=== PATIENT | female | born 1965 | race Caucasian/White ===

== ENCOUNTER → 2016-10-19 | Outpatient (CLI) | payer BC ==
--- NOTE | 2016-10-19 15:41 | REPMRS ---
Patient History The patient states she had a clinical breast exam in 10/2016. Patient is postmenopausal. No known family history of cancer. Digital Woman Screen Mammo: October 19, 2016 - Exam #: [id number] Bilateral CC and MLO view(s) were taken. Technologist: Ginny Short, Technologist Prior study comparison: September 22, 2015, digital woman screen mammo performed at [facility]. June 16, 2014, digital woman screen mammo performed at [facility]. June 15, 2013, digital woman screen mammo performed at [facility]. FINDINGS: There are scattered fibroglandular densities. There has been no change in the appearance of the mammogram from the prior studies. There is a mild amount of scattered fibroglandular density which is fairly symmetric. There is no interval development of dominant mass, architectural distortion, or clustered microcalcification suggestive of malignancy. ASSESSMENT: BI-RADS/ACR category 1 mammogram. Negative. Recommendation Routine screening mammogram in 1 year (for women over age 40). This mammogram was interpreted with the aid of an FDA-approved computer-aided dectection system. Electronically Signed By: Quan Feldman MD 10/19/16 [id number]
== END ==
LOC: M WHC 14:32
PROVIDERS: ATTEND Nurse Practitioner Women's Health
DX: Z12.31 Encounter for screening mammogram for malignant neoplasm of breast (principal); Z78.0 Asymptomatic menopausal state

== ENCOUNTER → 2017-12-02 | Outpatient (CLI) | payer BC | LOC: M WHC 12:54 | DX: Z12.31 Encounter for screening mammogram for malignant neoplasm of breast (principal); R10.2 Pelvic and perineal pain; Z78.0 Asymptomatic menopausal state | CPT/HCPCS: 76830 ==

== ENCOUNTER → 2018-12-04 | Outpatient (CLI) | payer BC ==
--- NOTE | 2018-12-04 16:54 | REPMRS ---
Patient History The patient states she had a clinical breast exam in 11/2018. Patient is postmenopausal. No known family history of cancer. No Hormone Replacement Therapy 3D TOMOSYNTHESIS WAS PERFORMED. [facility] lifetime risk for breast cancer is 10.3%. Digital Woman Screen Mammo: December 04, 2018 - Exam #: [id number] Bilateral CC and MLO view(s) were taken. Technologist: Ginny Short, Technologist Prior study comparison: December 02, 2017, bilateral digital woman screen mammo performed at [facility]. October 19, 2016, digital woman screen mammo performed at [facility]. FINDINGS: There are scattered fibroglandular densities. There has been no change in the appearance of the mammogram from the prior studies. There is a mild amount of residual fibroglandular tissue which is fairly symmetric. There is no interval development of dominant mass, architectural distortion, or clustered microcalcification suggestive of malignancy. Assessment: BI-RADS/ACR category 1 mammogram. Negative Mammogram. Recommendation Routine screening mammogram in 1 year (for women over age 40). This mammogram was interpreted with the aid of an FDA-approved computer-aided dectection system. Electronically Signed By: Alexy Villegas MD 12/04/18 [id number]
== END ==
LOC: M WHC 14:20
PROVIDERS: ATTEND Nurse Practitioner Women's Health
DX: Z12.31 Encounter for screening mammogram for malignant neoplasm of breast (principal); Z78.0 Asymptomatic menopausal state

== ENCOUNTER → 2018-12-04 | Outpatient (REF) | payer OTHER ==
[2018-12-09 14:07] LABS: HPV HYBRID CAPTURE II Negative (Negative)
== END ==
LOC: M SFHCWAGY 15:18
PROVIDERS: ATTEND Nurse Practitioner Women's Health
DX: Z12.4 Encounter for screening for malignant neoplasm of cervix (principal)

== ENCOUNTER → 2019-12-08 | Outpatient (CLI) | payer BC ==
--- NOTE | 2020-01-01 10:21 | REPMRS ---
Patient History The patient states she has not had a clinical breast exam in over a year. Patient is postmenopausal. No known family history of cancer. No Hormone Replacement Therapy Digital Woman Screen Mammo: December 08, 2019 - Exam #: [id number] Bilateral CC and MLO view(s) were taken. Technologist: India Caldwell, Technologist Prior study comparison: December 04, 2018, bilateral digital woman screen mammo performed at [facility]. December 02, 2017, bilateral digital woman screen mammo performed at [facility]. October 19, 2016, digital woman screen mammo performed at [facility]. FINDINGS: There are scattered fibroglandular densities. The [employer] volumetric breast density category is:B. There has been no change in the appearance of the mammogram from the prior studies. There is a mild amount of scattered fibroglandular density which is fairly symmetric. There is no interval development of dominant mass, architectural distortion, or grouped microcalcification suggestive of malignancy. 3-D tomosynthesis shows no additional findings. Report was delayed due to a protracted computer network disruption experienced by this facility. Assessment: BI-RADS/ACR category 1 mammogram. Negative Mammogram. Recommendation Routine screening mammogram of both breasts in 1 year (for women over age 40). This patient's Lifetime Breast Cancer Risk is estimated at 10.1 %. This mammogram was interpreted with the aid of an FDA-approved computer-aided dectection system. Electronically Signed By: Quan Feldman MD 01/01/20 0082
== END ==
LOC: M WHC 06:51
PROVIDERS: ATTEND Nurse Practitioner Women's Health
DX: Z12.31 Encounter for screening mammogram for malignant neoplasm of breast (principal); Z78.0 Asymptomatic menopausal state

== ENCOUNTER 2020-06-09 20:14 | Emergency (ER) | payer BC, OTHER ==
[~2020-06-09] VITALS: Ht 152.4 cm; Wt 86.4 kg
[2020-06-09] MEDS ORDERED: LEVO125T4 PO (20:25)
[2020-06-09] MEDS ORDERED: CYMB60CA3 PO (20:26)
[2020-06-09] MEDS ORDERED: IBUP200C29 PO (20:26)
--- OUTSIDE RECORDS SUMMARY | 2020-06-09 20:27 | CCD ---
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 Name Role Phone Tara Govea PA Unavailable Unavailable Tara Govea PA Unavailable Unavailable Tara Govea PA Unavailable Unavailable Tara Govea PA Unavailable Unavailable Tara Govea PA Unavailable Unavailable Tara Govea PA Unavailable Unavailable Tara Govea PA Unavailable Unavailable Tara Govea PA Unavailable Unavailable Tara Govea PA Unavailable Unavailable Tara Govea PA Unavailable Unavailable Tara Govea PA Unavailable Unavailable Tara Govea PA Unavailable Unavailable Tara Govea PA Unavailable Unavailable Tara Govea PA Unavailable Unavailable Tara Govea PA Unavailable Unavailable Tara Govea PA Unavailable Unavailable Tara Govea PA Unavailable Unavailable Tara Govea Pj PA Unavailable Unavailable Tara Govea Pj PA Unavailable Unavailable Tara Govea PA Unavailable Unavailable Tara Govea Pj PA Unavailable Unavailable Tara Govea Pj PA Unavailable Unavailable Tara Govea Pj PA Unavailable Unavailable Tara Govea Pj PA Unavailable Unavailable Tara Govea Pj PA Unavailable Unavailable Tara Govea Pj PA Unavailable Unavailable Tara Govea PA Unavailable Unavailable Tara Govea Pj PA Unavailable Unavailable Tara Govea Pj PA Unavailable Unavailable Tara Govea PA Unavailable Unavailable Tara Govea Pj PA Unavailable Unavailable Xuan, D Pj PA Unavailable Unavailable Xuan, D Pj PA Unavailable Unavailable Xuan, D Pj PA Unavailable Unavailable Xuan, D Pj PA Unavailable Unavailable Xuan, D Pj PA Unavailable Unavailable Xuan, D Pj PA Unavailable Unavailable Xuan, D Pj PA Unavailable Unavailable Xuan, D Pj PA Unavailable Unavailable Xuan, D Pj PA Unavailable Unavailable Xuan, D Pj PA Unavailable Unavailable Xuan, D Pj PA Unavailable Unavailable Xuan, D Pj PA Unavailable Unavailable Xuan, D Pj PA Unavailable Unavailable Xuan, D Pj PA Unavailable Unavailable Xuan, D Pj PA Unavailable Unavailable Xuan, D Pj PA Unavailable Unavailable Xuan, D Pj PA Unavailable Unavailable Xuan, D Pj PA Unavailable Unavailable Xuan, D Pj PA Unavailable Unavailable Xuan, D Pj PA Unavailable Unavailable Xuan, D Pj PA Unavailable Unavailable Xuan, D Pj PA Unavailable Unavailable Xuan, D Pj PA Unavailable Unavailable Xuan, D Pj PA Unavailable Unavailable Xuan, D Pj PA Unavailable Unavailable Xuan, D Pj PA Unavailable Unavailable Xuan, D Pj PA Unavailable Unavailable Xuan, D Pj PA Unavailable Unavailable Xuan, D Pj PA Unavailable Unavailable Xuan, D Pj PA Unavailable Unavailable Xuan, D Pj PA Unavailable Unavailable Xuan, D Pj PA Unavailable Unavailable Geovany Mcqueen MD Unavailable Unavailable Geovany Mcqueen MD Unavailable Unavailable Geovany Mcqueen MD Unavailable Unavailable Geovany Mcqueen MD Unavailable Unavailable Geovany Mcqueen MD Unavailable Unavailable Geovany Mcqueen MD Unavailable Unavailable Geovany Mcqueen MD Unavailable Unavailable Geovany Mcqueen MD Unavailable Unavailable Geovany Mcqueen MD Unavailable Unavailable Geovany Mcqueen MD Unavailable Unavailable Geovany Mcqueen MD Unavailable Unavailable Geovany Mcqueen MD Unavailable Unavailable Geovany Mcqueen MD Unavailable Unavailable Geovany Mcqueen MD Unavailable Unavailable Geovany Mcqueen MD Unavailable Unavailable Geovany Mcqueen MD Unavailable Unavailable Geovany Mcqueen MD Unavailable Unavailable Geovany Mcqueen MD Unavailable Unavailable Geovany Mcqueen MD Unavailable Unavailable Geovany Mcqueen MD Unavailable Unavailable Geovany Mcqueen MD Unavailable Unavailable Geovany Mcqueen MD Unavailable Unavailable Geovany Mcqueen MD Unavailable Unavailable Richar B Liz GONCALVES Unavailable Unavailable Geovany Mcqueen MD Unavailable Unavailable Geovany Mcqueen MD Unavailable Unavailable Geovany Mcqueen MD Unavailable Unavailable Fish, B Liz GONCALVES Unavailable Unavailable Fish, B Liz OGNCALVES Unavailable Unavailable Fish, B Liz GONCALVES Unavailable Unavailable Fish, B Liz GONCALVES Unavailable Unavailable Fish, B Liz GONCALVES Unavailable Unavailable Fish, B Liz GONCALVES Unavailable Unavailable Fish, B Liz GONCALVES Unavailable Unavailable Fish, B Liz GONCALVES Unavailable Unavailable Fish, B Liz GONCALVES Unavailable Unavailable Fish, B Liz GONCALVES Unavailable Unavailable Fish, B Liz GONCALVES Unavailable Unavailable Fish, B Liz GONCALVES Unavailable Unavailable Fish, B Liz GONCALVES Unavailable Unavailable Fish, B Liz GONCALVES Unavailable Unavailable Fish, B Liz GONCALVES Unavailable Unavailable Fish, B Liz GONCALVES Unavailable Unavailable Fish, B Liz GONCALVES Unavailable Unavailable Fish, B Liz GONCALVES Unavailable Unavailable Fish, B Liz GONCLAVES Unavailable Unavailable Fish, B Liz GONCALVES Unavailable Unavailable Fish, B Liz GONCALVES Unavailable Unavailable Fish, B Liz GONCALVES Unavailable Unavailable Fish, B Liz GONCALVES Unavailable Unavailable Fish, B Liz GONCALVES Unavailable Unavailable Fish, B Liz GONCALVES Unavailable Unavailable Fish, B Liz GONCALVES Unavailable Unavailable Fish, B Liz GONCALVES Unavailable Unavailable Fish, B Liz GONCALVES Unavailable Unavailable Fish, B Liz GONCALVES Unavailable Unavailable Fish, B Liz GONCALVES Unavailable Unavailable Fish, B Liz GONCALVES Unavailable Unavailable Fish, B Liz GONCALVES Unavailable Unavailable Fish, B Liz GONCALVES Unavailable Unavailable Fish, B Liz GONCALVES Unavailable Unavailable Fish, B Liz GONCALVES Unavailable Unavailable Fish, B Liz GONCALVES Unavailable Unavailable Fish, B Liz GONCALVES Unavailable Unavailable COOK, B TRAVON CONFIGURATION SPECIALIST Unavailable Unavailable COOK, B TRAVON CONFIGURATION SPECIALIST Unavailable Unavailable COOK, B TRAVON CONFIGURATION SPECIALIST Unavailable Unavailable COOK, B TRAVON CONFIGURATION SPECIALIST Unavailable Unavailable COOK, B TRAVON CONFIGURATION SPECIALIST Unavailable Unavailable COOK, B TRAVON CONFIGURATION SPECIALIST Unavailable Unavailable COOK, B TRAVON CONFIGURATION SPECIALIST Unavailable Unavailable COOK, B TRAVON CONFIGURATION SPECIALIST Unavailable Unavailable COOK, B TRAVON CONFIGURATION SPECIALIST Unavailable Unavailable COOK, B TRAVON CONFIGURATION SPECIALIST Unavailable Unavailable COOK, B TRAVON CONFIGURATION SPECIALIST Unavailable Unavailable COOK, B TRAVON CONFIGURATION SPECIALIST Unavailable Unavailable COOK, B TRAVON CONFIGURATION SPECIALIST Unavailable Unavailable COOK, B TRAVON CONFIGURATION SPECIALIST Unavailable Unavailable COOK, B TRAVON CONFIGURATION SPECIALIST Unavailable Unavailable COOK, B TRAVON CONFIGURATION SPECIALIST Unavailable Unavailable COOK, B TRAVON CONFIGURATION SPECIALIST Unavailable Unavailable COOK, B TRAVON CONFIGURATION SPECIALIST Unavailable Unavailable COOK, B TRAVON CONFIGURATION SPECIALIST Unavailable Unavailable COOK, B TRAVON CONFIGURATION SPECIALIST Unavailable Unavailable COOK, B TRAVON CONFIGURATION SPECIALIST Unavailable Unavailable COOK, B TRAVON CONFIGURATION SPECIALIST Unavailable Unavailable COOK, B TRAVON CONFIGURATION SPECIALIST Unavailable Unavailable COOK, B TRAVON CONFIGURATION SPECIALIST Unavailable Unavailable COOK, B TRAVON CONFIGURATION SPECIALIST Unavailable Unavailable COOK, B TRAVON CONFIGURATION SPECIALIST Unavailable Unavailable COOK, B TRAVON CONFIGURATION SPECIALIST Unavailable Unavailable COOK, B TRAVON CONFIGURATION SPECIALIST Unavailable Unavailable COOK, B TRAVON CONFIGURATION SPECIALIST Unavailable Unavailable COOK, B TRAVON CONFIGURATION SPECIALIST Unavailable Unavailable COOK, B TRAVON CONFIGURATION SPECIALIST Unavailable Unavailable COOK, B TRAVON CONFIGURATION SPECIALIST Unavailable Unavailable COOK, B TRAVON CONFIGURATION SPECIALIST Unavailable Unavailable COOK, B TRAVON CONFIGURATION SPECIALIST Unavailable Unavailable COOK, B TRAVON CONFIGURATION SPECIALIST Unavailable Unavailable COOK, B TRAVON CONFIGURATION SPECIALIST Unavailable Unavailable COOK, B TRAVON CONFIGURATION SPECIALIST Unavailable Unavailable COOK, B TRAVON CONFIGURATION SPECIALIST Unavailable Unavailable COOK, B TRAVON CONFIGURATION SPECIALIST Unavailable Unavailable COOK, B TRAVON CONFIGURATION SPECIALIST Unavailable Unavailable COOK, B TRAVON CONFIGURATION SPECIALIST Unavailable Unavailable COOK, B TRAVON CONFIGURATION SPECIALIST Unavailable Unavailable COOK, B TRAVON CONFIGURATION SPECIALIST Unavailable Unavailable COOK, B TRAVON CONFIGURATION SPECIALIST Unavailable Unavailable COOK, B TRAVON CONFIGURATION SPECIALIST Unavailable Unavailable COOK, B TRAVON CONFIGURATION SPECIALIST Unavailable Unavailable COOK, B TRAVON CONFIGURATION SPECIALIST Unavailable Unavailable COOK, B TRAVON CONFIGURATION SPECIALIST Unavailable Unavailable COOK, B TRAVON CONFIGURATION SPECIALIST Unavailable Unavailable COOK, B TRAVON CONFIGURATION SPECIALIST Unavailable Unavailable COOK, B TRAVON CONFIGURATION SPECIALIST Unavailable Unavailable COOK, B TRAVON CONFIGURATION SPECIALIST Unavailable Unavailable COOK, B TRAVON CONFIGURATION SPECIALIST Unavailable Unavailable COOK, B TRAVON CONFIGURATION SPECIALIST Unavailable Unavailable COOK, B TRAVON CONFIGURATION SPECIALIST Unavailable Unavailable COOK, B TRAVON CONFIGURATION SPECIALIST Unavailable Unavailable COOK, B TRAVON CONFIGURATION SPECIALIST Unavailable Unavailable COOK, B TRAVON CONFIGURATION SPECIALIST Unavailable Unavailable COOK, B TRAVON CONFIGURATION SPECIALIST Unavailable Unavailable COOK, B TRAVON CONFIGURATION SPECIALIST Unavailable Unavailable COOK, B TRAVON CONFIGURATION SPECIALIST Unavailable Unavailable COOK, B TRAVON CONFIGURATION SPECIALIST Unavailable Unavailable COOK, B TRAVON CONFIGURATION SPECIALIST Unavailable Unavailable COOK, B TRAVON CONFIGURATION SPECIALIST Unavailable Unavailable Re-disclosure Warning The records that you are about to access may contain information from federally-assisted alcohol or drug abuse programs. If such information is present, then the following federally mandated warning applies: This information has been disclosed to you from records protected by federal confidentiality rules (42 CFR part 2). The federal rules prohibit you from making any further disclosure of this information unless further disclosure is expressly permitted by the written consent of the person to whom it pertains or as otherwise permitted by 42 CFR part 2. A general authorization for the release of medical or other information is NOT sufficient for this purpose. The Federal rules restrict any use of the information to criminally investigate or prosecute any alcohol or drug abuse patient.The records that you are about to access may contain highly sensitive health information, the redisclosure of which is protected by Article 27-F of the [facility] Public Health law. If you continue you may have access to information: Regarding HIV / AIDS; Provided by facilities licensed or operated by the [facility] Office of Mental Health; or Provided by the [facility] Office for People With Developmental Disabilities. If such information is present, then the following [facility] mandated warning applies: This information has been disclosed to you from confidential records which are protected by state law. State law prohibits you from making any further disclosure of this information without the specific written consent of the person to whom it pertains, or as otherwise permitted by law. Any unauthorized further disclosure in violation of state law may result in a fine or correction sentence or both. A general authorization for the release of medical or other information is NOT sufficient authorization for further disc losure. Family History Family Member Name Family Member Gender Family Member Status Date o f Status Description Data Source(s) Unknown Unknown Problem [facility] ([facility]) Unknown Unknown Problem [facility] ([facility]) Unknown Unknown Problem [facility] ([facility]) Unknown Unknown Problem [facility] ([facility]) Unknown Unknown Problem [facility] ([facility]) Unknown Unknown Problem [facility] ([facility]) Encounters Encounter Providers Location Date Indications Data Source(s ) [place] [address] [facility] [address] 04/18/2020 12:00:00 AM EST eCW1 ([facility]) Outpatient Attender: Pj BRYANT [place] [facility] 07:45:00 AM EST [facility] ([facility] Outpatient Attender: Pj BRYANT [place] [facility] 10:00:00 AM EDT [facility] ([facility] Outpatient Attender: Pj BRYANT [place] [facility] 03:15:00 PM EDT [facility] ([facility] Outpatient Attender: TRAVON GARCIA NP Physical Therapy 08/17/2019 0 3:15:00 PM EDT [facility] ([facility]) Outpatient Attender: Pj BRYANT [place] [facility] 01:00:00 PM EDT [facility] ([facility] Outpatient Attender: Liz Mcqueen MD Physical Therapy 04/27 03:00:00 PM EST [facility] ([facility]) Immunizations Vaccine Date Status Description Data Source(s) New in 2012. IIV4 02/04/2020 10:06:00 AM EDT completed [facility] ([facility] Medications Medication Brand Name Start Date Product Form Dose Route Admi nistrative Instructions Pharmacy Instructions Status Indications Reaction Description Data Source(s) Cyclobenzaprine hydrochloride 5 MG Oral Tablet Cyclobenzapri ne HCL 08/27/2019 12:00:00 AM EDT ORAL active M EDENT ([facility] Insurance Providers Payer name Policy type / Coverage type Policy ID Covered constitution party ID Covered constitution party's relationship to napoles Policy Napoles Plan Information [facility] [phone] [id number] SP [id number] [employer] [id number] SP [id number] [facility] DIV [id number] SP [id number] [employer] [id number] ANSI-Commercial [id number] [facility] DIV [id number] SP [id number] [facility] [employer] [id number] 1 [id number] [employer] O [id number] S [id number] [facility] Health Maintenance Organization (HMO) [id number] Self [id number] [facility] Health Maintenance Organization (HMO) [id number] Self [id number] [employer] Elizabeth Commercial Family Depende nt [facility] Health Maintenance Organization (HMO) Self EMPIRE PLAN [facility] U [id number] Self [id number] [facility] [id number] [facility] [id number] [facility] SP UNAVAILABLE [facility] DIV [id number] SP [id number] [facility] DIV [id number] SP [id number] Problems, Conditions, and Diagnoses Code Display Name Description Problem Type Effective Dates Data Source(s) F32.9 61977614 Depression, unspecified depression type P roblem 04/18/2020 12:00:00 AM EST eCW1 ([facility]) [id number] Acquired trigger finger Acquired trigger finger Proble m 02/04/2020 12:00:00 AM EDT [facility] ([facility] Results ID Date Data Source [id number] 04/04/2020 09:12:00 AM EST MED[facility] ([facility] Name Value Range Interpretation Code Description Data Guerda rce(s) Supporting Document(s) Estrogen [Mass/volume] in Serum or Plasma 56 pg/mL [facility] ([facility] <content>Prepubertal <40</cont ent>
<content>Female Cycle:</content>
<content>1-10 Days 61 - 394</content>
<content>11- 20 Days 122 - 437</content>
<content>21-30 Days 156 - 350</content>
<content>Post-Menopausal <40</content>
<content>[facility] for Ovulation</content>
<content>Induction: 400 - 800</content>
<content></content> ID Date Data Source [id number] 04/04/2020 09:12:00 AM EST [facility] ([facility] Name Value Range Interpretation Code Description Data Guerda rce(s) Supporting Document(s) Lutropin [Units/volume] in Serum or Plasma 33.3 mIU/mL [facility] ([facility] Adult Female: Follicular phase 2.4 - 12.6 Ovulation phase 14.0 - 95.6 Luteal phase 1.0 - 11.4 Postmenopausal 7.7 - 58.5 Follitropin [Units/volume] in Serum or Plasma 68.4 mIU/mL [facility] ([facility] Adult Female: Follicular phase 3.5 - 12.5 Ovulation phase 4.7 - 21.5 Luteal phase 1.7 - 7.7 Postmenopausal 25.8 - 134.8 ID Date Data Source [id number] 04/04/2020 09:12:00 AM EST [facility] ([facility] Name Value Range Interpretation Code Description Data Guerda rce(s) Supporting Document(s) Testosterone Free [Mass/volume] in Serum or Plasma 2.6 pg/mL 0.0-4.2 [facility] ([facility] Testosterone [Mass/volume] in Serum or Plasma 9 ng/dL 3-41 [facility] ([facility] ID Date Data Source [id number] 02/25/2020 11:20:00 AM EDT [facility] ([facility] Name Value Range Interpretation Code Description Data Guerda rce(s) Supporting Document(s) Leukocytes [#/volume] in Blood by Automated count 6.7 x10E3/uL 3.4-10 .8 [facility] ([facility] A courtesy copy of this report has been sent to the patient, Hemoglobin [Mass/volume] in Blood 13.2 g/dL 11.1-15.9 [facility] ([facility] A courtesy copy of this report has been sent to the patient, Hematocrit [Volume Fraction] of Blood by Automated count 39.7 % 3 4.0-46.6 [facility] ([facility] A courtesy copy of this report has been sent to the patient, Erythrocytes [#/volume] in Blood by Automated count 4.38 x10E6/uL 3.7 7-5.28 [facility] ([facility] A courtesy copy of this report has been sent to the patient, Erythrocyte mean corpuscular volume [Entitic volume] by Auto mated count 91 fL 79-97 [facility] A courtesy copy of this report has been sent to the patient, Erythrocyte mean corpuscular hemoglobin concentration [Mass/volume] by Automated count 33.2 g/dL 31.5-35.7 [facility] ([facility] A courtesy copy of this report has been sent to the patient, Erythrocyte mean corpuscular hemoglobin [Entitic mass] by Automated count 30.1 pg 26.6-33.0 [facility] A courtesy copy of this report has been sent to the patient, Neutrophils 52 % [facility] A courtesy copy of this report has been sent to the patient, Platelets [#/volume] in Blood by Automated count 227 x10E3/uL 150-450 [facility] ([facility] A courtesy copy of this report has been sent to the patient, Erythrocyte distribution width [Ratio] by Automated count 13.2 % 11.7-15.4 [facility] ([facility] A courtesy copy of this report has been sent to the patient, Eosinophils/100 leukocytes in Blood by Automated count 1 % [facility] ([facility] A courtesy copy of this report has been sent to the patient, Lymphs 40 % [facility] ([facility] A courtesy copy of this report has been sent to the patient, Monocytes/100 leukocytes in Blood by Automated count 6 % [facility] ([facility] A courtesy copy of this report has been sent to the patient, Basophils/100 leukocytes in Blood by Automated count 1 % [facility] ([facility] A courtesy copy of this report has been sent to the patient, Immature cells [#/volume] in Blood Laboratory test result [facility] ([facility] A courtesy copy of this report has been sent to the patient, Neutrophils [#/volume] in Blood by Automated count 3.5 x10E3/uL 1.4-7 .0 [facility] ([facility] A courtesy copy of this report has been sent to the patient, Monocytes [#/volume] in Blood 0.4 x10E3/uL 0.1-0.9 [facility] ([facility] A courtesy copy of this report has been sent to the patient, Lymphocytes [#/volume] in Blood 2.7 x10E3/uL 0.7-3.1 [facility] ([facility] A courtesy copy of this report has been sent to the patient, Eosinophils [#/volume] in Blood by Automated count 0.1 x10E3/uL 0.0-0 .4 [facility] ([facility] A courtesy copy of this report has been sent to the patient, Basophils [#/volume] in Blood by Automated count 0.1 x10E3/uL 0.0-0.2 [facility] ([facility] A courtesy copy of this report has been sent to the patient, Immature granulocytes/100 leukocytes in Blood by Automated count 0 % [facility] ([facility] A courtesy copy of this report has been sent to the patient, Immature granulocytes [#/volume] in Blood by Automated count 0.0 x10E3/uL 0.0-0.1 [facility] A courtesy copy of this report has been sent to the patient, Morphology [Interpretation] in Blood Narrative Laboratory test result [facility] ([facility] A courtesy copy of this report has been sent to the patient, Nucleated erythrocytes/100 leukocytes [Ratio] in Blood by Automated count Laboratory test result [facility] ([facility] A courtesy copy of this report has been sent to the patient, ID Date Data Source [id number] 02/25/2020 11:20:00 AM EDT [facility] ([facility] Name Value Range Interpretation Code Description Data Guerda rce(s) Supporting Document(s) Glucose [Mass/volume] in Serum or Plasma 87 mg/dL 65-99 [facility] ([facility] A courtesy copy of this report has been sent to the patient, BUN 18 mg/dL 6-24 [facility] ([facility] A courtesy copy of this report has been sent to the patient, eGFR If NonAfricn Am 98 mL/min/1.73 [facility] ([facility] A courtesy copy of this report has been sent to the patient, Creatinine [Mass/volume] in Serum or Plasma 0.68 mg/dL 0.57-1.00 [facility] ([facility] A courtesy copy of this report has been sent to the patient, Sodium [Moles/volume] in Serum or Plasma 139 mmol/L 134-144 [facility] ([facility] A courtesy copy of this report has been sent to the patient, Urea nitrogen/Creatinine [Mass Ratio] in Serum or Plasma 26 9-23 Above high normal [facility] ([facility] ) A courtesy copy of this report has been sent to the patient, eGFR If Africn Am 113 mL/min/1.73 ME DENT ([facility] A courtesy copy of this report has been sent to the patient, Potassium [Moles/volume] in Serum or Plasma 4.5 mmol/L 3.5-5.2 [facility] ([facility] A courtesy copy of this report has been sent to the patient, Carbon dioxide, total [Moles/volume] in Serum or Plasma 23 mmol/L 20 -29 [facility] ([facility] A courtesy copy of this report has been sent to the patient, Chloride [Moles/volume] in Serum or Plasma 104 mmol/L 96-106 [facility] ([facility] A courtesy copy of this report has been sent to the patient, Protein [Mass/volume] in Serum or Plasma 6.8 g/dL 6.0-8.5 [facility] ([facility] A courtesy copy of this report has been sent to the patient, Albumin [Mass/volume] in Serum or Plasma 4.5 g/dL 3.8-4.9 [facility] ([facility] A courtesy copy of this report has been sent to the patient, Calcium [Mass/volume] in Serum or Plasma 9.3 mg/dL 8.7-10.2 [facility] ([facility] A courtesy copy of this report has been sent to the patient, Bilirubin.total [Mass/volume] in Serum or Plasma 0.4 mg/dL 0.0-1.2 [facility] ([facility] A courtesy copy of this report has been sent to the patient, Globulin [Mass/volume] in Serum by calculation 2.3 g/dL 1.5-4.5 [facility] ([facility] A courtesy copy of this report has been sent to the patient, Albumin/Globulin [Mass Ratio] in Serum or Plasma 2.0 1.2-2.2 [facility] ([facility] A courtesy copy of this report has been sent to the patient, Alanine aminotransferase [Enzymatic activity/volume] in Seru m or Plasma 18 IU/L 0-32 [facility] ([facility] A courtesy copy of this report has been sent to the patient, Alkaline phosphatase [Enzymatic activity/volume] in Serum or Plasma 57 IU/L 39-117 [facility] ([facility] A courtesy copy of this report has been sent to the patient, Aspartate aminotransferase [Enzymatic activity/volume] in Serum or Plasma 18 IU/L 0-40 [facility] ([facility] A courtesy copy of this report has been sent to the patient, ID Date Data Source [id number] 02/25/2020 11:20:00 AM EDT [facility] ([facility] Name Value Range Interpretation Code Description Data Guerda rce(s) Supporting Document(s) Cholesterol [Mass/volume] in Serum or Plasma 197 mg/dL 100-199 [facility] ([facility] A courtesy copy of this report has been sent to the patient, Triglyceride [Mass/volume] in Serum or Plasma 106 mg/dL 0-149 [facility] ([facility] A courtesy copy of this report has been sent to the patient, Laboratory test finding (navigational concept) 19 mg/dL 5-40 [facility] ([facility] A courtesy copy of this report has been sent to the patient, Laboratory test finding (navigational concept) 107 mg/dL 0-99 Above high normal [facility] ([facility] A courtesy copy of this report has been sent to the patient, Cholesterol in HDL [Mass/volume] in Serum or Plasma 71 mg/dL [facility] ([facility] A courtesy copy of this report has been sent to the patient, Comment: Laboratory test result [facility] ([facility] A courtesy copy of this report has been sent to the patient, ID Date Data Source [id number] 02/25/2020 11:20:00 AM EDT [facility] ([facility] Name Value Range Interpretation Code Description Data Guerda rce(s) Supporting Document(s) Calcidiol [Mass/volume] in Serum or Plasma 56.3 ng/mL 30.0-100.0 [facility] ([facility] A courtesy copy of this report has been sent to the patient, Thyrotropin [Units/volume] in Serum or Plasma 0.896 uIU/mL 0.450-4.50 0 [facility] ([facility] A courtesy copy of this report has been sent to the patient, Procedure Social History Code Duration Value Status Description Data Source(s ) Smoking 04/18/2020 12:00:00 AM EST Former Smoker completed Former Smoker [id number] ([facility]) Vital Signs ID Date Data Source UNK Name Value Range Interpretation Code Description Data Source(s) Systolic blood pressure 112 mm[Hg] 112 mm[Hg] M EDENT ([facility] Diastolic blood pressure 80 mm[Hg] 80 mm[Hg] [facility] ([facility] Body temperature 97.6 [degF] 97.6 [degF] [facility] ([facility] Heart rate 87 /min 87 /min [facility] ([facility] Respiratory rate 16 /min 16 /min [facility] ( [facility] Body height 60 [in_i] 60 [in_i] [facility] ([facility] 5'0" Body weight 167.00 [lb_av] 167.00 [lb_av] MEDEN T ([facility] [place] body weight 100 [lb_av] 100 [lb_av] MEDEN T ([facility] Body mass index (BMI) [Ratio] 32.6 kg/m2 32.6 k g/m2 [facility] ([facility] Oxygen saturation in Arterial blood by Pulse oximetry 98 % 98 % [facility] ([facility] Systolic blood pressure 100 mm[Hg] 100 mm[Hg] M EDENT ([facility] Diastolic blood pressure 76 mm[Hg] 76 mm[Hg] [facility] ([facility] Body temperature 98.1 [degF] 98.1 [degF] [facility] ([facility] Heart rate 75 /min 75 /min [facility] ([facility] Respiratory rate 16 /min 16 /min [facility] ( [facility] Body height 60 [in_i] 60 [in_i] [facility] ([facility] 5'0" Body weight 167.00 [lb_av] 167.00 [lb_av] MEDEN T ([facility] [place] body weight 100 [lb_av] 100 [lb_av] MEDEN T ([facility] Body mass index (BMI) [Ratio] 32.6 kg/m2 32.6 k g/m2 [facility] ([facility] Oxygen saturation in Arterial blood by Pulse oximetry 98 % 98 % [facility] ([facility] Systolic blood pressure 102 mm[Hg] 102 mm[Hg] M EDENT ([facility] Diastolic blood pressure 78 mm[Hg] 78 mm[Hg] [facility] ([facility] Body temperature 98.3 [degF] 98.3 [degF] [facility] ([facility] Heart rate 75 /min 75 /min [facility] ([facility] Respiratory rate 16 /min 16 /min [facility] ( [facility] Body height 60 [in_i] 60 [in_i] [facility] ([facility] 5'0" Body weight 166.00 [lb_av] 166.00 [lb_av] MEDEN T ([facility] [place] body weight 100 [lb_av] 100 [lb_av] MEDEN T ([facility] Body mass index (BMI) [Ratio] 32.4 kg/m2 32.4 k g/m2 [facility] ([facility] Oxygen saturation in Arterial blood by Pulse oximetry 98 % 98 % [facility] ([facility] Systolic blood pressure 102 mm[Hg] 102 mm[Hg] M EDENT ([facility] Diastolic blood pressure 78 mm[Hg] 78 mm[Hg] [facility] ([facility] Body temperature 98.3 [degF] 98.3 [degF] [facility] ([facility] Heart rate 100 /min 100 /min [facility] ([facility] Respiratory rate 16 /min 16 /min [facility] ( [facility] Body height 60 [in_i] 60 [in_i] [facility] ([facility] 5'0" Body weight 166.00 [lb_av] 166.00 [lb_av] MEDEN T ([facility] Body mass index (BMI) [Ratio] 32.4 kg/m2 32.4 k g/m2 [facility] ([facility] Oxygen saturation in Arterial blood by Pulse oximetry 96 % 96 % [facility] ([facility] Oxygen saturation in Arterial blood by Pulse oximetry 97 % 97 % [facility]A ([facility] Body mass index (BMI) [Ratio] 32.2 kg/m2 32.2 k g/m2 [facility] ([facility] Body weight 167.50 [lb_av] 167.50 [lb_av] MEDEN T ([facility] Body height 60.5 [in_i] 60.5 [in_i] [facility] ([facility] 5'0.50" Heart rate 84 /min 84 /min [facility] ([facility]) Diastolic blood pressure 84 mm[Hg] 84 mm[Hg] [facility]NORA ([facility] Systolic blood pressure 120 mm[Hg] 120 mm[Hg] Louisa VALENZUELA ([facility])
--- OUTSIDE RECORDS SUMMARY | 2020-06-09 20:27 | CCD ---
Author Author [facility] Organization [facility] [employer] [facility] Address Unknown Phone Unavailable Care Team Providers Care Utility Sales And Service Manager Name Role Phone KeziaSamara pablo Unavailable PROBLEMS Type Condition ICD9-CM Code [id number] Code Onset Dates Condition S tatus SNOMED Code Notes Problem Unspecified hypothyroidism 244.9 Active 37622 008 hx [facility] Problem Depression, unspecified depression type F32.9 Active 73996650 Problem Neck sprain and strain 847.0 Active [id number] ALLERGIES Allergen (clinical drug ingredient) Drug/Non Drug Allergy do cumented on EMR Reaction Allergy Type Onset Date Status sulfa chest tightness/pain Non Drug Allergy Active ENCOUNTERS from 1965 to 2020-04-19 Encounter Location Date Provider Diagnosis [facility] [address] [place] [id number] Apr, Samara Mast Postmenopausal Z78.0 and Depression, unspecified depression type F32.9 IMMUNIZATIONS No Information SOCIAL HISTORY Tobacco Use: Social History Observation Description Date Details (start date - stop date) Former Smoker Sex Assigned At : Social History Observation Description Sex Assigned At Unknown Sexual Hx: Question Answer Notes Had sex in the last 12 months (vaginal, oral, or anal)? Yes LMP: post menopause Have you ever had an STD? No with Men only Tobacco Use: Question Answer Notes Are you a: former smoker How long has it been since you last smoked? > 10 years REASON FOR REFERRAL No Information VITAL SIGNS No information MEDICATIONS Medication SIG (Take, Route, Frequency, Duration) Notes Start Da te End Date Status Estroven OTC 1 tablet Orally once a day Unknown Vitamin B Complex - as directed Orally Active Vitamin D3 2000 UNIT t tabs as directed Orally Once a day Active Cymbalta 30 mg 1 capsule Orally daily for 30 day(s) Active MiraLax - as directed Orally Active Synthroid 125 MCG 1 tablet every morning on an empty stoma ch Orally Once a day Active PROCEDURES No Information RESULTS No Results REASON FOR VISIT HAVING ISSUES AND GO OVER BLOOD WORK FROM HER PRIMARY MEDICAL (GENERAL) HISTORY Type Description Date Medical History Hypothyroidism, hx Macy's disease Medical History stress urinary incontinence, improved wi th exercise Medical History constipation Medical History Depression Surgical History cone bx. (Dr. Blas) 1990 Surgical History colposcopy 09/19 Surgical History colonoscopy 09/2018 Hospitalization History No Hospitalization history informati on Goals Section No Information Health Concerns No Information MEDICAL EQUIPMENT No Information MENTAL STATUS No Information FUNCTIONAL STATUS No Information ASSESSMENTS Encounter Date Diagnosis Assessment Notes Treatment Notes Treatm ent Clinical Notes Apr, Postmenopausal (ICD-10 - Z78.0) labs reviewed with pt, estrogen is 50, thyroid normal. no pmb, no pelvic pain, she does have chronic constipation that is treated with miralax Apr, Depression, unspecified depression type (ICD-10 - F32.9) continue with meds a/o by her PCP, discussed reducing caffeine and etoh, discussed adding exercise into her routine, even a brisk walk will be beneficial. pt retired in last year, had many plans of travelling after [facility] and is struggling with this loss PLAN OF TREATMENT Treatment Notes Assessment Notes Clinical Notes Postmenopausal labs reviewed with p t, estrogen is 50, thyroid normal. no pmb, no pelvic pain, she does have chronic constipation that is treated with miralax Depression, unspecified depression type continue with meds a/o by her PCP, discussed reducing caffeine and etoh, discussed adding exercise into her routine, even a brisk walk will be beneficial. pt retired in last year, had many plans of travelling after [facility] and is struggling with this loss Next Appt Details prn Reason:prn Follow Up:prnprn Insurance Providers Payer Name Payer Address Payer Phone Insured Name Patient Relati onship to Insured Coverage Start Date Coverage End Date [facility] [phone] [facility] [id number] [phone] FREDDIE ALICIA
[2020-06-09] MEDS ORDERED: NS 1,000 ML IV ONE (21:00)
[2020-06-09] MEDS ORDERED: ACETAMINOPHEN 325 MG TAB PO ONE (21:15)
[2020-06-09 21:28] LABS: BASO % 0.1 % (0.0-1.0); EOS # 0.1 10^3/uL (0.0-0.5); EOS % 1.3 % (0.0-3.0); HEMOGLOBIN 12.6 g/dl (12.0-15.5); LYMPH # 1.3 10^3/uL (1.5-5.0); LYMPH % 12.5 % (24.0-44.0); MEAN CORPUSCULAR HEMOGLOBIN 30.1 pg (27.0-33.0); MEAN CORPUSCULAR HGB CONC 33.2 g/dl (32.0-36.5); MEAN CORPUSCULAR VOLUME 90.9 fl (80.0-96.0); MONO # 0.6 10^3/uL (0.0-0.8); MONO % 5.2 % (0.0-5.0); NEUTROPHILS # 8.5 10^3/uL (1.5-8.5); NEUTROPHILS % 80.4 % (36.0-66.0); PLATELET COUNT, AUTOMATED 233 10^3/uL (150-450); RED BLOOD COUNT 4.18 10^6/uL (4.00-5.40); WHITE BLOOD COUNT 10.5 10^3/uL (4.0-10.0)
--- NOTE | 2020-06-09 21:48 | REPVR ---
PROCEDURE INFORMATION: Exam: XR Chest, 1 View Exam date and time: 06/09/2020 8:51 PM Age: 55 years old Clinical indication: Chest pain; Type not specified TECHNIQUE: Imaging protocol: XR of the chest Views: 1 view. COMPARISON: No relevant prior studies available. FINDINGS: Lungs: The right lung appears clear. There is vague increased density in the left lower lobe. Pleural spaces: Unremarkable. No pleural effusion. No pneumothorax. Heart/Mediastinum: Unremarkable. No cardiomegaly. Bones/joints: Unremarkable. IMPRESSION: There is vague increased density in the left lower lobe which could be due to subsegmental atelectasis, edema or early pneumonia. Electronically signed by: Vida Chance On 06/09/2020 21:47:46 PM
[2020-06-09 22:06] LABS: ALBUMIN 3.5 GM/DL (3.2-5.2); ALT/SGPT 25 U/L (12-78); BILIRUBIN,DIRECT 0.1 MG/DL (0.0-0.2); BILIRUBIN,TOTAL 0.6 MG/DL (0.2-1.0); BLOOD UREA NITROGEN 19 MG/DL (7-18); CALCIUM LEVEL 9.4 MG/DL (8.5-10.1); CARBON DIOXIDE LEVEL 27 MEQ/L (21-32); CHLORIDE LEVEL 107 MEQ/L (98-107); CK-MB VALUE MASS < 1.0 NG/ML (<3.6); CPK CREATINE PHOSPHOKINASE 112 U/L (26-192); CREATININE FOR GFR 0.78 MG/DL (0.55-1.30); GLOMERULAR FILTRATION RATE > 60.0 (>51); GLUCOSE, FASTING 103 MG/DL (70-100); LIPASE 92 U/L (73-393); MB/CK RELATIVE INDEX 0.89 (< OR =4); POTASSIUM SERUM 4.3 MEQ/L (3.5-5.1); SODIUM LEVEL 140 MEQ/L (136-145); TROPONIN I < 0.02 NG/ML (< 0.10)
--- OUTSIDE RECORDS SUMMARY | 2020-06-09 22:50 | CCD ---
Author Author [facility] Organization [facility] Address Unknown Phone Unavailable Care Team Providers Care Locomotive Operator Helper Name Role Phone Tara Govea PA Unavailable Unavailable aTra Govea PA Unavailable Unavailable Tara Govea PA [...] Unavailable Unavailable Tara Govea PA Unavailable Unavailable Xuan, D Pj PA [...] Unavailable Unavailable Geovany Mcqueen MD Unavailable Unavailable Geovnay Mcqueen MD Unavailable Unavailable Geovany Mcqueen MD [...] Unavailable Richar B Liz GONCALVES Unavailable Unavailable Richar B Liz GONCALVES Unavailable Unavailable Richar B Liz GONCALVES Unavailable Unavailable Richar B Liz GONCALVES Unavailable Unavailable Richar B Liz GONCALVES Unavailable Unavailable Geovany Mcqueen MD Unavailable Unavailable Geovany Mcqueen MD Unavailable Unavailable Richar B Liz GONCALVES Unavailable Unavailable Richar B Liz GONCALVES Unavailable Unavailable Richar B Liz GONCALVES Unavailable Unavailable Richar B Liz GONCALVES Unavailable Unavailable Richar B Liz GONCALVES Unavailable Unavailable Richar B Liz GONCALVES Unavailable Unavailable Richar B Liz GONCALVES Unavailable Unavailable Fish, B [...] Liz GONCALVES Unavailable Unavailable COOK, B TRAVON RECESSING MACHINE OPERATOR Unavailable Unavailable COOK, B TRAVON RECESSING MACHINE OPERATOR Unavailable Unavailable COOK, B TRAVON RECESSING MACHINE OPERATOR Unavailable Unavailable COOK, B TRAVON RECESSING MACHINE OPERATOR Unavailable Unavailable COOK, B TRAVON RECESSING MACHINE OPERATOR Unavailable Unavailable COOK, B TRAVON RECESSING MACHINE OPERATOR Unavailable Unavailable COOK, B TRAVON RECESSING MACHINE OPERATOR Unavailable Unavailable COOK, B TRAVON RECESSING MACHINE OPERATOR Unavailable Unavailable COOK, B TRAVNO RECESSING MACHINE OPERATOR Unavailable Unavailable COOK, B TRAVON RECESSING MACHINE OPERATOR Unavailable Unavailable COOK, B TRAVON RECESSING MACHINE OPERATOR Unavailable Unavailable COOK, B TRAVON RECESSING MACHINE OPERATOR Unavailable Unavailable COOK, B TRAVON RECESSING MACHINE OPERATOR Unavailable Unavailable COOK, B TRAVON RECESSING MACHINE OPERATOR Unavailable Unavailable COOK, B TRAVON RECESSING MACHINE OPERATOR Unavailable Unavailable COOK, B TRAVON RECESSING MACHINE OPERATOR Unavailable Unavailable COOK, B TRAVON RECESSING MACHINE OPERATOR Unavailable Unavailable COOK, B TRAVON RECESSING MACHINE OPERATOR Unavailable Unavailable COOK, B TRAVON RECESSING MACHINE OPERATOR Unavailable Unavailable COOK, B TRAVON RECESSING MACHINE OPERATOR Unavailable Unavailable COOK, B TRAVON RECESSING MACHINE OPERATOR Unavailable Unavailable COOK, B TRAVON RECESSING MACHINE OPERATOR Unavailable Unavailable COOK, B TRAVON RECESSING MACHINE OPERATOR Unavailable Unavailable COOK, B TRAVON RECESSING MACHINE OPERATOR Unavailable Unavailable COOK, B TRAVON RECESSING MACHINE OPERATOR Unavailable Unavailable COOK, B TRAVON RECESSING MACHINE OPERATOR Unavailable Unavailable COOK, B TRAVON RECESSING MACHINE OPERATOR Unavailable Unavailable COOK, B TRAVON RECESSING MACHINE OPERATOR Unavailable Unavailable COOK, B TRAVON RECESSING MACHINE OPERATOR Unavailable Unavailable COOK, B TRAVON RECESSING MACHINE OPERATOR Unavailable Unavailable COOK, B TRAVON RECESSING MACHINE OPERATOR Unavailable Unavailable COOK, B TRAVON RECESSING MACHINE OPERATOR Unavailable Unavailable COOK, B TRAVON RECESSING MACHINE OPERATOR Unavailable Unavailable COOK, B TRAVON RECESSING MACHINE OPERATOR Unavailable Unavailable COOK, B TRAVON RECESSING MACHINE OPERATOR Unavailable Unavailable COOK, B TRAVON RECESSING MACHINE OPERATOR Unavailable Unavailable COOK, B TRAVON RECESSING MACHINE OPERATOR Unavailable Unavailable COOK, B TRAVON RECESSING MACHINE OPERATOR Unavailable Unavailable COOK, B TRAVON RECESSING MACHINE OPERATOR Unavailable Unavailable COOK, B TRAVON RECESSING MACHINE OPERATOR Unavailable Unavailable COOK, B TRAVON RECESSING MACHINE OPERATOR Unavailable Unavailable COOK, B TRAVON RECESSING MACHINE OPERATOR Unavailable Unavailable COOK, B TRAVON RECESSING MACHINE OPERATOR Unavailable Unavailable COOK, B TRAVON RECESSING MACHINE OPERATOR Unavailable Unavailable COOK, B TRAVON RECESSING MACHINE OPERATOR Unavailable Unavailable COOK, B TRAVON RECESSING MACHINE OPERATOR Unavailable Unavailable COOK, B TRAVON RECESSING MACHINE OPERATOR Unavailable Unavailable COOK, B TRAVON RECESSING MACHINE OPERATOR Unavailable Unavailable COOK, B TRAVON RECESSING MACHINE OPERATOR Unavailable Unavailable COOK, B TRAVON RECESSING MACHINE OPERATOR Unavailable Unavailable COOK, B TRAVON RECESSING MACHINE OPERATOR Unavailable Unavailable COOK, B TRAVON RECESSING MACHINE OPERATOR Unavailable Unavailable COOK, B TRAVON RECESSING MACHINE OPERATOR Unavailable Unavailable COOK, B TRAVON RECESSING MACHINE OPERATOR Unavailable Unavailable COOK, B TRAVON RECESSING MACHINE OPERATOR Unavailable Unavailable COOK, B TRAVON RECESSING MACHINE OPERATOR Unavailable Unavailable COOK, B TRAVON RECESSING MACHINE OPERATOR Unavailable Unavailable COOK, B TRAVON RECESSING MACHINE OPERATOR Unavailable Unavailable COOK, B TRAVON RECESSING MACHINE OPERATOR Unavailable Unavailable COOK, B TRAVON RECESSING MACHINE OPERATOR Unavailable Unavailable COOK, B TRAVON RECESSING MACHINE OPERATOR Unavailable Unavailable COOK, B TRAVON RECESSING MACHINE OPERATOR Unavailable Unavailable COOK, B TRAVON RECESSING MACHINE OPERATOR Unavailable Unavailable COOK, B TRAVON RECESSING MACHINE OPERATOR Unavailable Unavailable Re-disclosure Warning The records that [...] is protected by Article 27-F of the [facility] Public Health law. If you continue you may have access to information: Regarding HIV / AIDS; Provided by facilities licensed or operated by the [facility] Office of Mental Health; or Provided by the [facility] Office for People With Developmental Disabilities. If such information is present, then the following [facility] mandated warning applies: This information has been [...] Date Indications Data Source(s ) Outpatient [address] [facility] [id number] 04/18/2020 12:00:00 AM EST eCW1 ([facility]) Outpatient Attender: Pj BRYANT [place] Office 07:45:00 AM EST MED[facility] ([facility] Outpatient Attender: Pj BRYANT [place] [facility] 10:00:00 AM EDT MED[facility] ([facility] Outpatient Attender: Pj BRYANT [place] [facility] 03:15:00 PM EDT [facility] Outpatient Attender: TRAVON GARCIA NP Physical Therapy 08/17/2019 0 3:15:00 PM EDT MEDENT ([facility]) Outpatient Attender: Pj BRYANT [place] Office 01:00:00 PM EDT MEDENT ([facility] Outpatient Attender: Liz Mcqueen MD Physical Therapy 04/27 03:00:00 PM EST MEDENT ([facility]) Immunizations Vaccine Date Status Description Data Source(s) New in 2012. IIV4 02/04/2020 10:06:00 AM EDT completed [facility] ([facility] Medications Medication Brand Name Start Date Product Form Dose Route Admi nistrative Instructions Pharmacy Instructions Status Indications Reaction Description Data Source(s) Cyclobenzaprine hydrochloride 5 MG Oral Tablet Cyclobenzapri ne HCL 08/27/2019 12:00:00 AM EDT ORAL active M EDENT ([facility] Insurance Providers Payer name Policy type / Coverage type Policy ID Covered constitution party ID Covered constitution party's relationship to napoles Policy Napoles Plan Information [employer] [facility] [phone] [id number] SP [id number] [facility] [id number] SP [id number] [employer] 303/803 [id number] SP [id number] BCBS [facility] DIV [id number] SP [id number] UNITED [employer] [id number] ANSI-Commercial [id number] BCBS [employer] [place] DIV [id number] SP [id number] [place] [facility] [id number] 1 [id number] UNITED HE[employer]CARE O [id number] S [id number] [place] [facility] Health Maintenance Organization (HMO) [id number] Self [id number] [place] [facility] Health Maintenance Organization (HMO) [id number] Self [id number] [employer] [facility] [place] Commercial Family Depende nt [place] [facility] Health Maintenance Organization (HMO) Self EMPIRE PLAN [facility] U [id number] Self [id number] [facility] W [id number] [facility] [id number] [facility] UNAVAILABLE SP UNAVAILABLE BCBS [employer] [place] DIV [id number] SP [id number] BCBS [employer] [place] DIV [id number] SP [id number] Problems, Conditions, and Diagnoses Code Display Name Description Problem Type Effective Dates Data Source(s) F32.9 54712909 Depression, unspecified depression type P roblem 04/18/2020 12:00:00 AM EST eCW1 ([facility]) [id number] Acquired trigger finger Acquired trigger finger Proble m 02/04/2020 12:00:00 AM EDT MED[facility] ([facility] ) Results ID Date Data Source [id number] 04/04/2020 09:12:00 AM EST MEDENT ([facility] Name Value Range Interpretation Code Description Data Guerda rce(s) Supporting Document(s) Estrogen [Mass/volume] in Serum or Plasma 56 pg/mL MED[facility] ([facility] <content>Prepubertal <40</cont ent>
<content>Female Cycle:</content>
<content>1-10 Days 61 - 394</content>
<content>11- 20 Days 122 - 437</content>
<content>21-30 Days 156 - 350</content>
<content>Post-Menopausal <40</content>
<content>[facility] for Ovulation</content>
<content>Induction: 400 - 800</content>
<content></content> ID Date Data Source [id number] 04/04/2020 09:12:00 AM EST MEDENT (Famil y [...] in Serum or Plasma 68.4 mIU/mL MEDENT ([facility] Adult Female: Follicular phase 3.5 - 12.5 Ovulation phase 4.7 - 21.5 Luteal phase 1.7 - 7.7 Postmenopausal 25.8 - 134.8 ID Date Data Source [id number] 04/04/2020 09:12:00 AM EST MEDENT ([facility] Name Value Range Interpretation Code Description Data Guerda rce(s) Supporting Document(s) Testosterone Free [Mass/volume] in Serum or Plasma 2.6 pg/mL 0.0-4.2 MEDENT ([facility] Testosterone [Mass/volume] in Serum or Plasma 9 ng/dL 3-41 MEDENT ([facility] ID Date Data Source [id number] 02/25/2020 11:20:00 AM EDT MEDENT ([facility] Name Value Range Interpretation Code Description Data Guerda rce(s) Supporting Document(s) Leukocytes [#/volume] in Blood by Automated count 6.7 x10E3/uL 3.4-10 .8 MEDENT ([facility] A courtesy copy of this report has been sent to the patient, Hemoglobin [Mass/volume] in Blood 13.2 g/dL 11.1-15.9 MEDENT ([facility] A courtesy copy of this report has been sent to the patient, Hematocrit [Volume Fraction] of Blood by Automated count 39.7 % 3 4.0-46.6 MED[facility] ([facility] A courtesy copy of this report has been sent to the patient, Erythrocytes [#/volume] in Blood by Automated count 4.38 x10E6/uL 3.7 7-5.28 MED[facility] ([facility] A courtesy copy of this report has been sent to the patient, Erythrocyte mean corpuscular volume [Entitic volume] by Auto mated count 91 fL 79-97 [facility] A courtesy copy of this report has been sent to the patient, Erythrocyte mean corpuscular hemoglobin concentration [Mass/volume] by Automated count 33.2 g/dL 31.5-35.7 MED[facility] ([facility] A courtesy copy of this report has been sent to the patient, Erythrocyte mean corpuscular hemoglobin [Entitic mass] by Automated count 30.1 pg 26.6-33.0 MEDENT ([facility] A courtesy copy of this report has been sent to the patient, Neutrophils 52 % MEDENT ([facility] A courtesy copy of this report has been sent to the patient, Platelets [#/volume] in Blood by Automated count 227 x10E3/uL 150-450 MED[facility] ([facility] A courtesy copy of this report has been sent to the patient, Erythrocyte distribution width [Ratio] by Automated count 13.2 % 11.7-15.4 MED[facility] ([facility] A courtesy copy of this report has been sent to the patient, Eosinophils/100 leukocytes in Blood by Automated count 1 % MED[facility] ([facility] A courtesy copy of this report has been sent to the patient, Lymphs 40 % [facility] ([facility] A courtesy copy of this report has been sent to the patient, Monocytes/100 leukocytes in Blood by Automated count 6 % MED[facility] ([facility] A courtesy copy of this report has been sent to the patient, Basophils/100 leukocytes in Blood by Automated count 1 % MED[facility] ([facility] A courtesy copy of this report has been sent to the patient, Immature cells [#/volume] in Blood Laboratory test result MED[facility] ([facility] A courtesy copy of this report has been sent to the patient, Neutrophils [#/volume] in Blood by Automated count 3.5 x10E3/uL 1.4-7 .0 [facility] ([facility] A courtesy copy of this report has been sent to the patient, Monocytes [#/volume] in Blood 0.4 x10E3/uL 0.1-0.9 [facility] ([facility] A courtesy copy of this report has been sent to the patient, Lymphocytes [#/volume] in Blood 2.7 x10E3/uL 0.7-3.1 [facility] ([facility] A courtesy copy of this report has been sent to the patient, Eosinophils [#/volume] in Blood by Automated count 0.1 x10E3/uL 0.0-0 .4 [facility] ([facility] A courtesy copy of this report has been sent to the patient, Basophils [#/volume] in Blood by Automated count 0.1 x10E3/uL 0.0-0.2 [facility] ([facility] A courtesy copy of this report has been sent to the patient, Immature granulocytes/100 leukocytes in Blood by Automated count 0 % [facility] ([facility] A courtesy copy of this report has been sent to the patient, Immature granulocytes [#/volume] in Blood by Automated count 0.0 x10E3/uL 0.0-0.1 [facility] A courtesy copy of this report has been sent to the patient, Morphology [Interpretation] in Blood Narrative Laboratory test result [facility] ([facility] A courtesy copy of this report has been sent to the patient, Nucleated erythrocytes/100 leukocytes [Ratio] in Blood by Automated count Laboratory test result [facility] ([facility] A courtesy copy of this report has been sent to the patient, ID Date Data Source [id number] 02/25/2020 11:20:00 AM EDT MED[facility] ([facility] Name Value Range Interpretation Code Description Data Guerda rce(s) Supporting Document(s) Glucose [Mass/volume] in Serum or Plasma 87 mg/dL 65-99 [facility] ([facility] A courtesy copy of this report has been sent to the patient, BUN 18 mg/dL 6-24 [facility] ([facility] A courtesy copy of this report has been sent to the patient, eGFR If NonAfricn Am 98 mL/min/1.73 [facility] ([facility] A courtesy copy of this report has been sent to the patient, Creatinine [Mass/volume] in Serum or Plasma 0.68 mg/dL 0.57-1.00 [facility] ([facility] A courtesy copy of this report has been sent to the patient, Sodium [Moles/volume] in Serum or Plasma 139 mmol/L 134-144 [facility] ([facility] A courtesy copy of this report has been sent to the patient, Urea nitrogen/Creatinine [Mass Ratio] in Serum or Plasma 26 9-23 Above high normal MED[facility] ([facility] ) A courtesy copy of this report has been sent to the patient, eGFR If Africn Am 113 mL/min/1.73 ME DENT ([facility] A courtesy copy of this report has been sent to the patient, Potassium [Moles/volume] in Serum or Plasma 4.5 mmol/L 3.5-5.2 [facility] ([facility] A courtesy copy of this report has been sent to the patient, Carbon dioxide, total [Moles/volume] in Serum or Plasma 23 mmol/L 20 -29 [facility] ([facility] A courtesy copy of this report has been sent to the patient, Chloride [Moles/volume] in Serum or Plasma 104 mmol/L 96-106 [facility] ([facility] A courtesy copy of this report has been sent to the patient, Protein [Mass/volume] in Serum or Plasma 6.8 g/dL 6.0-8.5 [facility] ([facility] A courtesy copy of this report has been sent to the patient, Albumin [Mass/volume] in Serum or Plasma 4.5 g/dL 3.8-4.9 [facility] ([facility] A courtesy copy of this report has been sent to the patient, Calcium [Mass/volume] in Serum or Plasma 9.3 mg/dL 8.7-10.2 [facility] ([facility] A courtesy copy of this report has been sent to the patient, Bilirubin.total [Mass/volume] in Serum or Plasma 0.4 mg/dL 0.0-1.2 [facility] ([facility] A courtesy copy of this report has been sent to the patient, Globulin [Mass/volume] in Serum by calculation 2.3 g/dL 1.5-4.5 [facility] ([facility] A courtesy copy of this report has been sent to the patient, Albumin/Globulin [Mass Ratio] in Serum or Plasma 2.0 1.2-2.2 [facility] ([facility] A courtesy copy of this report has been sent to the patient, Alanine aminotransferase [Enzymatic activity/volume] in Seru m or Plasma 18 IU/L 0-32 [facility] A courtesy copy of this report has been sent to the patient, Alkaline phosphatase [Enzymatic activity/volume] in Serum or Plasma 57 IU/L 39-117 [facility] A courtesy copy of this report has been sent to the patient, Aspartate aminotransferase [Enzymatic activity/volume] in Serum or Plasma 18 IU/L 0-40 [facility] ([facility] A courtesy copy of this report has been sent to the patient, ID Date Data Source [id number] 02/25/2020 11:20:00 AM EDT MEDENT ([facility] Name Value Range Interpretation Code Description Data Guerda rce(s) Supporting Document(s) Cholesterol [Mass/volume] in Serum or Plasma 197 mg/dL 100-199 [facility] ([facility] A courtesy copy of this report has been sent to the patient, Triglyceride [Mass/volume] in Serum or Plasma 106 mg/dL 0-149 [facility] ([facility] A courtesy copy of this report has been sent to the patient, Laboratory test finding (navigational concept) 19 mg/dL 5-40 [facility] ([facility] A courtesy copy of this report has been sent to the patient, Laboratory test finding (navigational concept) 107 mg/dL 0-99 Above high normal [facility] ([facility] A courtesy copy of this report has been sent to the patient, Cholesterol in HDL [Mass/volume] in Serum or Plasma 71 mg/dL [facility] ([facility] A courtesy copy of this report has been sent to the patient, Comment: Laboratory test result MEDENT ([facility] A courtesy copy of this report has been sent to the patient, ID Date Data Source [id number] 02/25/2020 11:20:00 AM EDT MEDENT ([facility] Name Value Range Interpretation Code Description Data Guerda rce(s) Supporting Document(s) Calcidiol [Mass/volume] in Serum or Plasma 56.3 ng/mL 30.0-100.0 [facility] ([facility] A courtesy copy of this report has been sent to the patient, Thyrotropin [Units/volume] in Serum or Plasma 0.896 uIU/mL 0.450-4.50 0 MEDENT ([facility] A courtesy copy of this report has been sent to the patient, Procedure Social History Code Duration Value Status Description Data Source(s ) Smoking 04/18/2020 12:00:00 AM EST Former Smoker completed Former Smoker eCW1 ([facility]) Vital Signs ID Date Data Source UNK Name Value Range Interpretation Code Description Data Source(s) Systolic blood pressure 112 mm[Hg] 112 mm[Hg] M EDENT ([facility] Diastolic blood pressure 80 mm[Hg] 80 mm[Hg] MED[facility] ([facility] Body temperature 97.6 [degF] 97.6 [degF] MEDENT ([facility] Heart rate 87 /min 87 /min MED[facility] ([facility] Respiratory rate 16 /min 16 /min MED[facility] ( [facility] Body height 60 [in_i] 60 [in_i] MEDENT ([facility] 5'0" Body weight 167.00 [lb_av] 167.00 [lb_av] MEDEN T ([facility] [place] body weight 100 [lb_av] 100 [lb_av] MEDEN T ([facility] Body mass index (BMI) [Ratio] 32.6 kg/m2 32.6 k g/m2 [facility] ([facility] Oxygen saturation in Arterial blood by Pulse oximetry 98 % 98 % [facility] ([facility] Systolic blood pressure 100 mm[Hg] 100 mm[Hg] M EDENT ([facility] Diastolic blood pressure 76 mm[Hg] 76 mm[Hg] MEDENT ([facility] Body temperature 98.1 [degF] 98.1 [degF] MEDENT ([facility] Heart rate 75 /min 75 /min [facility] ([facility] Respiratory rate 16 /min 16 /min [facility] ( [facility] Body height 60 [in_i] 60 [in_i] MEDENT ([facility] 5'0" Body weight 167.00 [lb_av] 167.00 [lb_av] MEDEN T ([facility] [place] body weight 100 [lb_av] 100 [lb_av] MEDEN [...] Body height 60 [in_i] 60 [in_i] MEDENT ([facility] 5'0" Body weight 166.00 [lb_av] 166.00 [lb_av] MEDEN T ([facility] [place] body weight 100 [lb_av] 100 [lb_av] MEDEN [...] Heart rate 100 /min 100 /min MED[facility] ([facility] Respiratory rate 16 /min 16 /min [facility] ( [facility] Body height 60 [in_i] 60 [in_i] MEDENT ([facility] 5'0" Body weight 166.00 [lb_av] 166.00 [lb_av] MEDEN T ([facility] Body mass index (BMI) [Ratio] 32.4 kg/m2 32.4 k g/m2 MED[facility] ([facility] Oxygen saturation in Arterial blood by Pulse oximetry 96 % 96 % [facility] ([facility] [facility] Oxygen saturation in Arterial blood by Pulse oximetry 97 % 97 % [facility] ([facility]) Body mass index (BMI) [Ratio] 32.2 kg/m2 32.2 k g/m2 [facility] ([facility]) Body weight 167.50 [lb_av] 167.50 [lb_av] [facility] T ([facility]) Body height 60.5 [in_i] 60.5 [in_i] [facility] ([facility]) 5'0.50" Heart rate 84 /min 84 /min [facility] ([facility]) Diastolic blood pressure 84 mm[Hg] 84 mm[Hg] [facility] ([facility]) Systolic blood pressure 120 mm[Hg] 120 mm[Hg] Louisa VALENZUELA ([facility])
[2020-06-09] MEDS ORDERED: ISOVUE-370 76% 100ML VIAL As Ordered ONE (23:12)
--- NOTE | 2020-06-09 23:49 | REPVR ---
PROCEDURE INFORMATION: Exam: CT Angiography Chest With Contrast Exam date and time: 06/09/2020 11:08 PM Age: 55 years old Clinical indication: Shortness of breath; Additional info: SOB, +COVID concern pe TECHNIQUE: Imaging protocol: Computed tomographic angiography of the chest with intravenous contrast. 3D rendering (Not supervised by radiologist): MIP and/or 3D reconstructed images were created by the technologist. Radiation optimization: All CT scans at this facility use at least one of these dose optimization techniques: automated exposure control; mA and/or kV adjustment per patient size (includes targeted exams where dose is matched to clinical indication); or iterative reconstruction. Contrast material: ISO; Contrast volume: 75 ml; Contrast route: INTRAVENOUS (IV); COMPARISON: CR PORTABLE CHEST X-RAY 06/09/2020 8:59 PM FINDINGS: Limitations: Examination is limited by motion artifact. Pulmonary arteries: Normal. No pulmonary emboli. Aorta: Unremarkable. No aortic aneurysm. No aortic dissection. Bronchial tree: Diffuse bronchial wall thickening. Lungs: Mild patchy areas of ground-glass opacities. Diffuse interlobular septal thickening. Lung nodule in the lateral basal left lower lobe measuring 6 x 4 mm. (Series 401, image 107). Lung nodule in the right middle lobe measuring 5 mm. (Series 401, image 91). Lung nodule in the posterior basal left lower lobe. (Series 401, image 103). Pleural spaces: Small bilateral pleural effusions. No pneumothorax. Heart: Unremarkable. No cardiomegaly. No pericardial effusion. Lymph nodes: Unremarkable. No enlarged lymph nodes. Liver: Circumscribed hypodense lesion in the left hepatic lobe measuring 9 mm. (Segment 4A) Bones/joints: Mild degenerative spine. No acute fracture. Soft tissues: Unremarkable. IMPRESSION: 1. Negative for pulmonary emboli. 2. Mild patchy ground-glass opacities bilaterally. Diffuse bronchial wall thickening and interlobular septal thickening. Commonly reported imaging features of COVID-19 pneumonia are present. Other processes such as influenza pneumonia and organizing pneumonia, as can be seen with drug toxicity and connective tissue disease, can cause a similar imaging pattern. (See Reference: Antione) 3. Multiple lung nodules. For patients at low risk (minimal or absent history of smoking and of other known risk factors), no routine follow-up is indicated. (Reference: Darnell) 4. Circumscribed hypodense lesion in the left hepatic lobe. Consistent with benign cyst. No follow-up is necessary. REFERENCES: 1. Darnell H, et al. Guidelines for Management of Incidental Pulmonary Nodules Detected on CT Images: From the Fleischner Society 2017. Radiology. 2017;284(1):228-243. 2. Antione Matthews et al., Radiological Society of [place] Expert Consensus Statement on Reporting Chest CT Findings Related to COVID-19. Endorsed by the Society of Thoracic Radiology, the [place] [employer], and RSNA, Jul 2019. Electronically signed by: Marcia Manzo On 06/09/2020 23:48:50 PM
[2020-06-10 00:08] VITALS: BP 114/74
[2020-06-10] MEDS ORDERED: AUGM875T28 PO (00:22)
[2020-06-10] MEDS ORDERED: PROAAER10 INH (00:22)
--- NOTE | 2020-06-10 06:58 | ECGEPIP ---
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
== END 2020-06-10 00:31 | disposition home or self-care (01) ==
LOC: M ED 20:14
DX: U07.1 COVID-19 (principal); J12.82 Pneumonia due to coronavirus disease 2019; E03.9 Hypothyroidism, unspecified; Z88.1 Allergy status to other antibiotic agents; Z88.2 Allergy status to sulfonamides
CPT/HCPCS: 71045; 71275; 80048; 80076; 82550; 82553; 83690; 84443; 84484; 85025; 85379; 93005; 96360; 96361; 99284; Q9967

== ENCOUNTER → 2020-12-14 | Outpatient (CLI) | payer BC ==
[~2020-12-14] MED LIST: AUGM875T28 PO; CYMB60CA3 PO; IBUP200C29 PO; LEVO125T4 PO; PROAAER10 INH
--- NOTE | 2020-12-14 13:23 | REPMRS ---
Patient History The patient states she has not had a clinical breast exam in over a year. No known family history of cancer. No Hormone Replacement Therapy Patient states no breast complaints today. Patient has signed MRS History Sheet. Digital Woman Screen Mammo: December 14, 2020 - Exam #: [id number] Bilateral CC and MLO view(s) were taken. Technologist: Ginny Short, Technologist Prior study comparison: December 08, 2019, bilateral digital woman screen mammo performed at [facility]. December 04, 2018, bilateral digital woman screen mammo performed at [facility]. FINDINGS: There are scattered fibroglandular densities. Screening. Digital screening (2D) mammography was performed bilaterally in the CC and MLO projections. Additionally, breast tomosynthesis (3D mammography) was performed bilaterally in the CC and MLO projections. Todays exam was compared to the prior exam/exams. By history, the patient has no complaints of a palpable breast abnormality or other significant breast complaints. The breasts are unchanged in size and shape. There are no cindy-soft tissue densities or spiculated masses. There is no internal architectural distortion. There are no suspicious cindy-calcific clusters. Skin thickening or nipple retraction is not present. IMPRESSION: BI-RADS Category 2- Benign Findings. There is no evidence of malignant alteration of the breasts. Followup examination recommended in one year. The Volpara volumetric breast density category is B, there are scattered areas of fibroglandular densities. This mammogram was read with the assistance of [facility] [employer],an FDA approved computer aided detection system for mammography. The lifetime Tyrer-Cuzick score is 9.9 % Negative x-ray reports should not delay surgical consultation if a dominant or clinically suspicious mass is present. Not all breast cancers can be identified by mammography. Therefore, we recommend that you continue to perform regular breast self-examination and physical examination and then promptly contact your physician of any concerns or changes. Adenosis and dense breasts may obscure an underlying neoplasm. Assessment: BI-RADS/ACR category 2 mammogram. Benign Findings. Recommendation Routine screening mammogram of both breasts in 1 year. Electronically Signed By: Destin Cotto DO 12/14/20 [id number]
== END ==
LOC: M WHC 11:50
PROVIDERS: ATTEND Nurse Practitioner Women's Health
DX: Z12.31 Encounter for screening mammogram for malignant neoplasm of breast (principal)

== ENCOUNTER → 2021-04-03 | Outpatient (CLI) | payer BC, OTHER ==
[~2021-04-03] MED LIST changes: -CYMB60CA3 PO; +CYMB60CA4 PO
--- NOTE | 2021-04-03 12:09 | REP ---
INDICATION: ABNORMAL FINDING COMPARISON: 06/09/2020 CT angio chest TECHNIQUE: Standard helical technique without contrast FINDINGS: Although technically different, the mediastinum and pulmonary jerry appear stable. No mass or adenopathy is evident. There are no pleural or pericardial effusions. There is no significant change in appearance of the imaged upper abdomen or imaged osseous structures. Evaluation of the lung maravilla shows near complete resolution of the patchy parenchymal opacities seen on the prior exam. There are numerous noncalcified pulmonary nodules some of which were previously obscured by the aforementioned opacities. The largest nodule in the left lung is in the left lower lobe and measures 7 mm. The largest nodule in the right lung is in the middle lobe and measures 5 mm. IMPRESSION: Lung parenchymal improvement and lung nodules as described above. I cannot make in exact comparison in regards to the prior exam. I will categorize this examination is a lung rads category 3 and recommend a six-month follow-up CT. <Electronically signed by Destin Cotto > 04/03/21 1027
== END ==
LOC: M RAD 09:31
PROVIDERS: ATTEND Nurse Practitioner Adult Health
DX: R91.8 Other nonspecific abnormal finding of lung field (principal); Z86.16 Personal history of COVID-19; Z87.891 Personal history of nicotine dependence

== ENCOUNTER → 2021-10-18 | Outpatient (CLI) | payer BC, OTHER | LOC: M RAD 10:58 | PROVIDERS: ATTEND Nurse Practitioner Adult Health | DX: R91.8 Other nonspecific abnormal finding of lung field (principal) ==

== ENCOUNTER → 2021-12-07 | Outpatient (CLI) | payer BC, OTHER | LOC: M RAD 07:23 | PROVIDERS: ATTEND Physician Assistant Surgical | DX: R10.811 Right upper quadrant abdominal tenderness (principal); R14.0 Abdominal distension (gaseous) ==

== ENCOUNTER → 2022-03-30 | Outpatient (REF) | payer BC | LOC: M PLALAB 11:08 | PROVIDERS: ATTEND Nurse Practitioner Family | DX: Z12.4 Encounter for screening for malignant neoplasm of cervix (principal) ==

== ENCOUNTER → 2022-03-30 | Outpatient (CLI) | payer BC, OTHER | LOC: M WHC 10:25 | PROVIDERS: ATTEND Nurse Practitioner Family | DX: Z12.31 Encounter for screening mammogram for malignant neoplasm of breast (principal) ==

== ENCOUNTER → 2022-05-02 | Outpatient (CLI) | payer BC, OTHER | LOC: M RAD 09:05 | PROVIDERS: ATTEND Nurse Practitioner Adult Health | DX: R91.8 Other nonspecific abnormal finding of lung field (principal) ==

== ENCOUNTER → 2022-11-21 | Outpatient (CLI) | payer BC, OTHER | LOC: M RAD 10:29 | PROVIDERS: ATTEND Nurse Practitioner Adult Health | DX: R91.8 Other nonspecific abnormal finding of lung field (principal) ==

== ENCOUNTER → 2023-08-15 | Outpatient (CLI) | payer BC | LOC: M WHC 14:26 | PROVIDERS: ATTEND Nurse Practitioner Family | DX: Z12.31 Encounter for screening mammogram for malignant neoplasm of breast (principal) ==

== ENCOUNTER → 2024-09-01 | Outpatient (CLI) | payer BC | LOC: M RAD 09:48 | PROVIDERS: ATTEND Nurse Practitioner Adult Health | DX: Z87.891 Personal history of nicotine dependence (principal) ==